=== PATIENT | male | born 1990 | race Caucasian/White ===

== ENCOUNTER 2018-02-04 15:38 | Emergency (ER) | payer OTHER ==
[2018-02-04] MEDS: HYDROCODONE/APAP (5/325) TAB PO (16:10)
[2018-02-04] MEDS: DIPHTH/TET/ACEL PERTUSS (ADULT) 0.5 ML VIAL IM* (16:11)
[2018-02-04] MEDS: LIDOCAINE 2% (MDV) 20 ML INJ INJ (16:11)
== END 2018-02-04 17:29 | disposition home or self-care (01) ==
LOC: FTE 15:38
DX: S71.111A Laceration without foreign body, right thigh, initial encounter (principal); R51 Headache; V18.2XXA Unspecified pedal cyclist injured in noncollision transport accident in nontraffic accident, initial encounter; Y92.9 Unspecified place or not applicable; Z23 Encounter for immunization
CPT/HCPCS: 12001; 70450; 72125; 73510; 73562; 90471; 90715; 99285-25